=== PATIENT | female | born 1980 ===

== ENCOUNTER 2017-02-14 15:19 | Emergency (ER) | payer OTHER ==
[2017-02-14 15:19] VITALS: BMI 45.1
[2017-02-14 15:29] VITALS: BP 130/82; PULSE 90; RESP 18; TEMP 98.8; O2SAT 98
[2017-02-14] MEDS ORDERED: Sodium Chloride 0.9% 1,000 ML IV STA (16:07)
--- NOTE | 2017-02-14 16:07 | ED PDOC ---
HPI: Female Pain Time Seen by Provider: 02/14/17 16:04 Chief Complaint (Nursing): Female Genitourinary Chief Complaint (Provider): vaginal bleeding History Per: Patient (36 y/o female h/o HTN Approx 12 week gestation here with vaginal bleeding moderate today. Notes crampy abdominal pain. Has US pending for care under care of Dr. Sandoval medical dermatologist. Denies any dysuria/ fevers/chills.) Past Medical History Reviewed: Historical Data, Nursing Documentation, Vital Signs Vital Signs: Last Vital Signs Temp 98.8 F 02/14/17 15:25 Pulse 90 02/14/17 15:25 Resp 18 02/14/17 15:25 BP 130/82 02/14/17 15:25 Pulse Ox 98 02/14/17 15:25 - Medical History PMH: Anemia, Asthma, Bronchitis, HTN - Surgical History Surgical History: Tonsillectomy - Family History Family History: States: Unknown Family Hx - Immunization History Hx Tetanus Toxoid Vaccination: Yes Hx Influenza Vaccination: Yes Hx Pneumococcal Vaccination: Yes - Home Medications Home Medications: Ambulatory Orders Medication Instructions Recorded Blood Pressure Medicine 02/13/17 - Allergies Allergies/Adverse Reactions: Allergies Allergy/AdvReac Type Severity Reaction Status Date / Time Penicillins Allergy RASH Verified 02/13/17 08:55 shellfish derived Allergy RASH Verified 02/13/17 08:55 Review of Systems ROS Statement: Except As Marked, All Systems Reviewed And Found Negative Gastrointestinal: Positive for: Abdominal Pain Genitourinary Female: Positive for: Vaginal Bleeding Physical Exam - Reviewed Nursing Documentation Reviewed: Yes Vital Signs Reviewed: Yes - Physical Exam Appears: Positive for: Well, Non-toxic, No Acute Distress Head Exam: Positive for: ATRAUMATIC, NORMAL INSPECTION, NORMOCEPHALIC Skin: Positive for: Normal Color, Warm, DRY Eye Exam: Positive for: EOMI, Normal appearance, PERRL ENT: Positive for: Normal ENT Inspection Neck: Positive for: Normal, Painless ROM Cardiovascular/Chest: Positive for: Regular Rate, Rhythm Respiratory: Positive for: CNT, Normal Breath Sounds Gastrointestinal/Abdominal: Positive for: Normal Exam, Bowel Sounds, Soft Back: Positive for: Normal Inspection Extremity: Positive for: Normal ROM Neurologic/Psych: Positive for: Alert, Oriented - Laboratory Results Result Diagrams: 02/14/17 16:44 02/14/17 16:44 - ECG O2 Sat by Pulse Oximetry: 98 - Progress ED Course And Treament: us pelvic: IMPRESSION: Stable single intrauterine gestation identified with average ultrasound ultrasound age of 11 weeks 5 days with positive cardiac activity as noted above. No prominent hemorrhage is seen related to the decidual reaction this time once again. Continued clinical and possible sonographic follow-up are advised. Disposition - Clinical Impression Clinical Impression: Threatened miscarriage - Patient ED Disposition Is Patient to be Admitted: No - Disposition Disposition: Routine/Home Disposition Time: 18:30 Condition: FAIR Instructions: Threatened Miscarriage (ED) Forms: [employer] (Estonian)
[2017-02-14 16:49] LABS: BASO % 0.6 % (0.0-2.0); EOS # 0.1 K/uL (0.0-0.7); EOS % 2.1 % (0.0-4.0); HEMATOCRIT 34.9 % (34.0-47.0); LYMPH # 1.4 K/uL (1.0-4.3); LYMPH % 21.5 % (20.0-40.0); MEAN CELL VOLUME 86.6 fl (81.0-99.0); MEAN CORPUSCULAR HEMOGLOBIN 28.3 pg (27.0-31.0); MEAN CORPUSCULAR HGB CONC 32.7 g/dL (33.0-37.0); MEAN PLATELET VOLUME 8.3 fl (7.2-11.7); MONO # 0.5 K/uL (0.0-0.8); MONO % 7.8 % (0.0-10.0); NEUT # 4.4 K/uL (1.8-7.0); WHITE BLOOD COUNT 6.4 K/uL (4.8-10.8)
[2017-02-14 17:03] LABS: BLOOD UREA NITROGEN 8 mg/dl (7-17); CALCIUM 9.1 mg/dL (8.4-10.2); CARBON DIOXIDE 23 mmol/L (22-30); CHLORIDE 103 mmol/L (98-107); GFR AFRICAN-AMERICAN > 60; GLUCOSE,RANDOM 98 mg/dL (65-105); SODIUM 140 mmol/l (132-148)
--- NOTE | 2017-02-14 17:35 | US ---
PROCEDURE: OB Pelvic Ultrasound HISTORY: vaginal bleeding COMPARISON: None available. FINDINGS: UTERUS: Gestational sac: A single viable intrauterine gestation is again identified within an endometrial cavity the average ultrasonic age of 11 weeks 5 days which agrees with prior ultrasound examination performed 02/13/2017. No gross hemorrhage is seen related to the decidual reaction which is stable appearing. No definite myometrial lesion. Heart rate: 174 bpm. Uterus measures 15.4 x 8.5 x 9.5 cm cm. Normal in size and appearance. CERVIX: Long and closed. No cervical abnormality seen. RIGHT OVARY: Measures 2.5 x 1.9 x 1.7 cm. No mass lesion. Color Doppler blood flow could not be determined due to body habitus. LEFT OVARY: Measures 3.2 x 2.7 x 2.2 cm. No solid mass. Color Doppler blood flow could not be determined due to body habitus. FREE FLUID: None. OTHER FINDINGS: None. IMPRESSION: Stable single intrauterine gestation identified with average ultrasound ultrasound age of 11 weeks 5 days with positive cardiac activity as noted above. No prominent hemorrhage is seen related to the decidual reaction this time once again. Continued clinical and possible sonographic follow-up are advised.
== END 2017-02-14 18:50 | disposition home or self-care (01) ==
LOC: H.ER 15:19
DX: O20.0 Threatened abortion (principal); Z3A.12 12 weeks gestation of pregnancy
CPT/HCPCS: 76815; 80048; 81025; 84702; 85025; 86850; 86900; 87086; 99283; J7040

== ENCOUNTER 2017-02-18 03:34 | Observation (INO) | payer MEDICAID, OTHER ==
[2017-02-18 03:34] VITALS: BMI 45.1
[2017-02-18 03:43] VITALS: RESP 16
[2017-02-18] MEDS ORDERED: Sodium Chloride 0.9% 1,000 ML IV STA ×2 (04:01→05:53)
[2017-02-18 04:18] LABS: BASO % 0.3 % (0.0-2.0); EOS # 0.1 K/uL (0.0-0.7); HEMATOCRIT 32.7 % (34.0-47.0); LYMPH # 1.9 K/uL (1.0-4.3); LYMPH % 26.1 % (20.0-40.0); MEAN CELL VOLUME 85.6 fl (81.0-99.0); MEAN CORPUSCULAR HEMOGLOBIN 29.2 pg (27.0-31.0); MEAN CORPUSCULAR HGB CONC 34.1 g/dL (33.0-37.0); MEAN PLATELET VOLUME 8.4 fl (7.2-11.7); MONO # 0.7 K/uL (0.0-0.8); MONO % 9.7 % (0.0-10.0); NEUT # 4.6 K/uL (1.8-7.0); NEUT % 61.9 % (50.0-75.0); NRBC % 0.1 % (0.0-0.0); RED CELL DISTRIBUTION WIDTH 16.3 % (11.5-14.5); WHITE BLOOD COUNT 7.4 K/uL (4.8-10.8)
[2017-02-18 04:27] LABS: ALB/GLOB RATIO 1.2 (1.0-2.1); ALKALINE PHOSPHATASE 67 U/L (38-126); ALT/SGPT 32 U/L (9-52); AST/SGOT 18 U/L (14-36); BILIRUBIN,TOTAL 0.5 mg/dl (0.2-1.3); BLOOD UREA NITROGEN 8 mg/dl (7-17); CALCIUM 9.1 mg/dL (8.4-10.2); CARBON DIOXIDE 22 mmol/L (22-30); CHLORIDE 106 mmol/L (98-107); GFR AFRICAN-AMERICAN > 60; GLUCOSE,RANDOM 119 mg/dL (65-105); POTASSIUM 3.7 MMOL/L (3.6-5.0); TOTAL PROTEIN 6.7 G/DL (6.3-8.2)
[2017-02-18 04:38] LABS: SODIUM 136 mmol/l (132-148)
--- NOTE | 2017-02-18 05:16 | ED PDOC ---
HPI: Female Pain Time Seen by Provider: 02/18/17 03:43 Chief Complaint (Nursing): Female Genitourinary Chief Complaint (Provider): vaginal bleeding History Per: Patient History/Exam Limitations: no limitations Onset/Duration Of Symptoms: Mins (30) Current Symptoms Are (Timing): Still Present Quality Of Discomfort: Cramping, "Pain" Additional History Per: Patient Additional Complaint(s): 36 y/o female approx 13 weeks gestation presents with heavy vaginal bleeding with low back pain x 30 mins. Patient actively vomiting upon arrival to ED. Denies fever, chest pain, shortness of breath, abdominal pain, dysuria, hematuria. Abnormal Vaginal Bleeding: Yes : 2 Para: 1 Miscarriage: 0 Past Medical History Reviewed: Historical Data, Nursing Documentation, Vital Signs Vital Signs: Last Vital Signs Temp 99.6 F 02/18/17 03:39 Pulse 74 02/18/17 03:39 Resp 16 02/18/17 03:39 BP 123/61 02/18/17 03:39 Pulse Ox 100 02/18/17 03:39 - Medical History PMH: Anemia, Asthma, Bronchitis, HTN - Surgical History Surgical History: Tonsillectomy - Family History Family History: States: Unknown Family Hx - Immunization History Hx Tetanus Toxoid Vaccination: Yes Hx Influenza Vaccination: Yes Hx Pneumococcal Vaccination: Yes - Home Medications Home Medications: Ambulatory Orders Medication Instructions Recorded Blood Pressure Medicine 02/13/17 - Allergies Allergies/Adverse Reactions: Allergies Allergy/AdvReac Type Severity Reaction Status Date / Time Penicillins Allergy RASH Verified 02/18/17 03:39 shellfish derived Allergy RASH Verified 02/18/17 03:39 Review of Systems ROS Statement: Except As Marked, All Systems Reviewed And Found Negative Genitourinary Female: Positive for: Vaginal Bleeding Musculoskeletal: Positive for: Back Pain Physical Exam - Reviewed Nursing Documentation Reviewed: Yes Vital Signs Reviewed: Yes - Physical Exam Appears: Positive for: Well, Non-toxic, In Acute Distress Head Exam: Positive for: ATRAUMATIC, NORMAL INSPECTION, NORMOCEPHALIC Skin: Positive for: Diaphoresis, Pallor Eye Exam: Positive for: Normal appearance ENT: Positive for: Normal ENT Inspection Cardiovascular/Chest: Positive for: Regular Rate, Rhythm Respiratory: Positive for: Normal Breath Sounds Gastrointestinal/Abdominal: Positive for: Normal Exam Back: Positive for: Normal Inspection Extremity: Positive for: Normal ROM Neurologic/Psych: Positive for: Alert, Oriented - Laboratory Results Result Diagrams: 02/18/17 04:14 02/18/17 04:14 - ECG O2 Sat by Pulse Oximetry: 100 - Progress ED Course And Treament: labs, urine, IV fluids, PO tylenol, OB u/s On re-eval, patient states she passed fetus. Fetus noted on exam room floor; obtained and sent to pathology. Patient states pain improved, still with bleeding. ED OBSERVATION Date of observation admission: 02/18/17 Time of observation admission: 05:15 - Observation admission statement Patient is placed on observation because of need: for continuous hemodynamic monitoring - Progress Note Progress Note: 02/18/17 5:20 Patient refused transvaginal ultrasound, and unable to sit still for transabdominal. Patient sent back from u/s and is now vomiting. IV zofran, IV morphine ordered Disposition - Clinical Impression Clinical Impression: Complete - Disposition Disposition: Transfer of Care Disposition Time: 06:00 Condition: FAIR Patient Signed Over To: Joey Anders Handoff Comments: pending repeat CBC, am u/s
[2017-02-18] MEDS ORDERED: Oxycodone/Acetaminophen 5/325 mg Tab PO ONE (05:30)
[2017-02-18] MEDS ORDERED: Oxycodone/Acetaminophen 5/325 mg Tab ONE (05:32)
--- NOTE | 2017-02-18 06:12 | ED PDOC ---
- Laboratory Results Result Diagrams: 02/18/17 04:14 02/18/17 04:14 - ECG O2 Sat by Pulse Oximetry: 100 Medical Decision Making Medical Decision Making: At 6AM pt signed out to provider by Nancy MELENDEZ; pending repeat labs, U/S, and re-evaluation At 7AM pt s/o to Dr Banuelos pending repeat labs, U/S and re-evaluation. Disposition - Clinical Impression Clinical Impression: Complete - POA Present On Arrival: None - Disposition Disposition: Transfer of Care Disposition Time: 16:00 Condition: FAIR Patient Signed Over To: Susie Banuelos
[2017-02-18 08:48] LABS: HEMATOCRIT 30.1 % (34.0-47.0); MEAN CELL VOLUME 86.8 fl (81.0-99.0); MEAN CORPUSCULAR HEMOGLOBIN 28.5 pg (27.0-31.0); MEAN CORPUSCULAR HGB CONC 32.8 g/dL (33.0-37.0); RED CELL DISTRIBUTION WIDTH 16.2 % (11.5-14.5)
[2017-02-18 10:29] LABS: PH,URINE 7.5 (5.0-8.0); URINE BILIRUBIN LARGE (NEGATIVE); URINE BLOOD LARGE (NEGATIVE); URINE COLOR DARK RED (YELLOW); URINE GLUCOSE (UA) NEGATIVE (Normal); URINE KETONE 15 mg/dL (NEGATIVE); URINE PROTEIN >=300 mg/dL (NEGATIVE)
[2017-02-18 10:30] LABS: RBC URINE 600 /hpf (0-3); URINE BACTERIA FEW (<OCC); URINE LEUKOCYTE ESTERASE LARGE Leu/uL (Negative); WBC URINE 5 /hpf (0-5)
--- NOTE | 2017-02-18 11:18 | US ---
HISTORY: 13 wks : bleeding COMPARISON: None available. TECHNIQUE: Transabdominal pelvic ultrasound was performed. The patient refused endovaginal examination. FINDINGS: UTERUS: Measures 20.7 x 10.0 x 9.5 cm. The uterus is enlarged and anteverted. No evidence of intrauterine gestation. ENDOMETRIUM: The central endometrial echo complex is thickened and heterogeneous measuring 19 mm. CERVIX: There is large amount of complex echogenic material in the lower you try knee canal and endocervical canal. RIGHT OVARY: Not visualized. LEFT OVARY: Not visualized. FREE FLUID: No significant free fluid noted. OTHER FINDINGS: None. IMPRESSION: No evidence of intrauterine gestation or retained products of conception. Findings are most compatible with blood clots in the lower uterine segment and endocervical canal.
[2017-02-18 11:23] VITALS: PULSE 68
--- NOTE | 2017-02-18 12:13 | ED PDOC ---
- Laboratory Results Result Diagrams: 02/18/17 08:42 02/18/17 04:14 - ECG O2 Sat by Pulse Oximetry: 99 Medical Decision Making Medical Decision Making: Ultrasound reviewed. Patient denies complaints except for bleeding. She does not have lightheadedness or weakness. 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 Case d/w Dr. Schwab. May discharge home with close followup with her OB Disposition Doctor Will See Patient In The: Office Counseled Patient/Family Regarding: Diagnosis, Need For Followup, Rx Given - Clinical Impression Clinical Impression: Complete - POA Present On Arrival: None - Disposition Disposition: Routine/Home Disposition Time: 12:54 Condition: FAIR
[2017-02-18 13:40] VITALS: BP 128/70; TEMP 98.2; O2SAT 100
== END 2017-02-18 13:39 | disposition home or self-care (01) ==
LOC: H.ER 03:34 → H.EROBSV 05:40
PROVIDERS: ADMIT Emergency Medicine; ATTEND Emergency Medicine
DX: O03.9 Complete or unspecified spontaneous abortion without complication (principal); J45.909 Unspecified asthma, uncomplicated; D64.9 Anemia, unspecified; J40 Bronchitis, not specified as acute or chronic; O16.1 Unspecified maternal hypertension, first trimester; O99.511 Diseases of the respiratory system complicating pregnancy, first trimester; O21.9 Vomiting of pregnancy, unspecified; Z3A.13 13 weeks gestation of pregnancy; M54.5 Low back pain
CPT/HCPCS: 76815; 80053; 81003; 84702; 85025; 85027; 87086; 88305; 96365; 96375; 96376; 99285; G0378; J2270; J2405; J2765; J7040

== ENCOUNTER 2017-08-07 00:08 | Emergency (ER) | payer MEDICAID, OTHER ==
[2017-08-07 00:09] VITALS: BMI 45.1
[2017-08-07 00:32] VITALS: RESP 17; TEMP 97.8; O2SAT 97
--- NOTE | 2017-08-07 03:46 | ED PDOC ---
HPI: Hypertension/Hypotension Time Seen by Provider: 08/07/17 01:51 Chief Complaint (Nursing): Palpitations Chief Complaint (Provider): Palpitations History Per: Patient History/Exam Limitations: no limitations Onset/Duration Of Symptoms: Intermittent Episodes Current Symptoms Are (Timing): Intermittent Episodes (since earlier today) Associated Symptoms: denies: Chest Pain, Dyspnea, Dizziness, Blurred Vision, Focal Weakness, Headache Additional Complaint(s): 37 year old female presents to ED with complaints of intermittent palpitations and SOB since earlier today. Patient expresses concern over her HTN (patient has not taken her Losartan 50mg daily for the past month due to lack of insurance and losing her PMD) and is unsure if that is contributing to her current symptoms. Patient states she also has a history of PCOS and asthma. (-) fever, chest pain, cough, headache, dizziness, visual changes, or rash. 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 Patient denies any exertional activity or positional component. Patient denies any symptoms at present and states the last episode was 1-2 hours prior to arrival. PCP: None Past Medical History Reviewed: Historical Data, Nursing Documentation, Vital Signs Vital Signs: Last Vital Signs Temp 97.8 F 08/07/17 00:27 Pulse 90 08/07/17 00:27 Resp 17 08/07/17 00:27 BP 158/107 H 08/07/17 02:51 Pulse Ox 97 08/07/17 00:27 - Medical History PMH: Anemia, Asthma, Bronchitis, HTN - Surgical History Surgical History: Tonsillectomy - Family History Family History: States: Stroke, [place], CAD, Hypertension - Living Arrangements Living Arrangements: With Family - Social History Current smoker - smoking cessation education provided: No Ex-Smoker (has not smoked in the last 12 months): No Alcohol: None Drugs: Denies - Home Medications Home Medications: Ambulatory Orders Medication Instructions Recorded Blood Pressure Medicine 02/13/17 Methylergonovine [Methergine] 0.2 mg PO DAILY #3 tab 02/18/17 Azithromycin 250 mg PO DAILY #6 tab 06/09/17 Losartan [Cozaar] 50 mg PO DAILY #30 tab 06/09/17 Losartan [Cozaar] 50 mg PO DAILY #14 tab 08/07/17 - Allergies Allergies/Adverse Reactions: Allergies Allergy/AdvReac Type Severity Reaction Status Date / Time Penicillins Allergy RASH Verified 08/07/17 00:32 shellfish derived Allergy RASH Verified 08/07/17 00:32 Review of Systems ROS Statement: Except As Marked, All Systems Reviewed And Found Negative Constitutional: Negative for: Fever Cardiovascular: Positive for: Palpitations. Negative for: Chest Pain Respiratory: Positive for: Shortness of Breath. Negative for: Cough Skin: Negative for: Rash Neurological: Negative for: Headache, Dizziness Physical Exam - Reviewed Nursing Documentation Reviewed: Yes Vital Signs Reviewed: Yes - Physical Exam Appears: Positive for: Non-toxic, No Acute Distress Head Exam: Positive for: ATRAUMATIC, NORMOCEPHALIC Skin: Positive for: Normal Color, Warm, Dry Eye Exam: Positive for: PERRL. Negative for: Nystagmus Neck: Positive for: Painless ROM Cardiovascular/Chest: Positive for: Regular Rate, Rhythm. Negative for: Chest Non Tender, Murmur, Bradycardia, Tachycardia Respiratory: Positive for: Normal Breath Sounds (speaking in full sentences, respirations even and nonlabored.). Negative for: Decreased Breath Sounds, Accessory Muscle Use, Wheezing, Respiratory Distress Gastrointestinal/Abdominal: Positive for: Soft. Negative for: Tenderness, Mass , Distended, Guarding Back: Negative for: L CVA Tenderness, R CVA Tenderness Extremity: Positive for: Normal ROM. Negative for: Pedal Edema, Calf Tenderness , Deformity Neurologic/Psych: Positive for: Alert, ship runner II-XII (grossly intact), Oriented (x3 ), Gait (steady in ED). Negative for: Motor/Sensory Deficits, Aphasia, Facial Droop - ECG ECG Rhythm: Positive for: Normal ST Segment Interpretation Of ECG: NSR Rate: 80 O2 Sat by Pulse Oximetry: 97 (RA) Pulse Ox Interpretation: Normal Medical Decision Making Medical Decision Makin Initial impression: palpitations, elevated blood pressure Initial plan: * CXR * Cozaar 50mg PO * Re-eval * Repeat vitals 0240 CXR reviewed by Robby MARROQUIN, no acute disease. Patient notified a Radiologist will review the ED reading if any change in treatment is needed we will contact you. 0250 Repeat BP: 158/107 0355 Repeat BP: 152/104 On re-evaluation, patient reports improvement of symptoms, denies any palpitations or chest discomfort at this time. On exam, patient remains AAOx3, in no acute distress. Lungs clear to auscultation, cardiac RRR, abdomen soft, non-tender, repeat neuro exam shows no focal findings. Lab/Diagnostic results d/w the patient in great detail. Diagnosis of elevated BP , palpitations d/w the patient. Based on history, exam and diagnostic results, plan will be for outpatient follow up. Patient instructed to follow-up with pmd / referral provided / the clinic in 1- 2 days without fail. Advised to take medication as prescribed. Return to the emergency room at any time for any new or worsening symptoms. Patient states she fully agrees with and understands discharge instructions. States that she agrees with the plan and disposition. Verbalized and repeated discharge instructions and plan. I have given the patient opportunity to ask any additional questions. Scribe Attestation: Documented by Mare John acting as a scribe for Ryanne Bustamante PA-C. Scribe Attestation: All medical record entries made by the Scribe were at my direction and personally dictated by me. I have reviewed the chart and agree that the record accurately reflects my personal performance of the history, physical exam, medical decision making, and the department course for this patient. I have also personally directed, reviewed, and agree with the discharge instructions and disposition. Disposition - Clinical Impression Clinical Impression: Palpitations, Hypertension - Patient ED Disposition Is Patient to be Admitted: No Counseled Patient/Family Regarding: Studies Performed, Diagnosis, Need For Followup, Rx Given - Disposition Referrals: [facility] [Provider Group] Disposition: Routine/Home Disposition Time: 03:55 Condition: FAIR Prescriptions: Losartan [Cozaar] 50 mg PO DAILY #14 tab Instructions: High Blood Pressure in Adults, DASH Diet, Palpitations, Controlling Your Blood Pressure Through Lifestyle, Medicines for High Blood Pressure Forms: [employer] (French), [facility] ED School/Work Excuse Print Language: AZERI - POA Present On Arrival: None
[2017-08-07 03:50] VITALS: PULSE 80
[2017-08-07 03:55] VITALS: BP 152/104
--- NOTE | 2017-08-07 09:58 | RAD ---
HISTORY: SOB COMPARISON: No prior. TECHNIQUE: Chest PA and lateral FINDINGS: LUNGS: No active pulmonary disease. PLEURA: No significant pleural effusion identified. No pneumothorax apparent. CARDIOVASCULAR: Normal. OSSEOUS STRUCTURES: Mild multilevel degenerative spondylosis of the thoracic spine. Chronic anterior wedge deformities of a few mid to lower thoracic segments noted. VISUALIZED UPPER ABDOMEN: Normal. OTHER FINDINGS: None. IMPRESSION: No active disease.
== END 2017-08-07 04:20 | disposition home or self-care (01) ==
LOC: H.ER 00:08
DX: R00.2 Palpitations (principal); I10 Essential (primary) hypertension; J45.909 Unspecified asthma, uncomplicated; Z88.0 Allergy status to penicillin

== ENCOUNTER 2018-05-23 03:45 | Emergency (ER) | payer MEDICAID, OTHER ==
[2018-05-23 03:46] VITALS: BMI 45.1
[2018-05-23 04:30] LABS: SQUAMOUS EPITHIAL 4 /hpf (0-5); URINE BACTERIA RARE (<OCC); URINE BILIRUBIN NEGATIVE (NEGATIVE); URINE BLOOD LARGE (NEGATIVE); URINE CLARITY CLOUDY (Clear); URINE COLOR YELLOW (YELLOW); URINE GLUCOSE (UA) NEG (NEGATIVE); URINE LEUKOCYTE ESTERASE NEG Leu/uL (Negative); URINE PROTEIN 30 mg/dL (NEGATIVE); URINE UROBILINOGEN 0.2-1.0 mg/dL (0.2-1.0)
[2018-05-23 04:40] LABS: BASO % 0.7 % (0.0-2.0); EOS # 0.2 K/uL (0.0-0.7); EOS % 3.4 % (0.0-4.0); HEMOGLOBIN 11.4 g/dL (12.0-16.0); LYMPH % 27.8 % (20.0-40.0); MEAN CELL VOLUME 85.1 fl (81.0-99.0); MEAN CORPUSCULAR HEMOGLOBIN 28.2 pg (27.0-31.0); MEAN CORPUSCULAR HGB CONC 33.1 g/dL (33.0-37.0); MEAN PLATELET VOLUME 8.7 fl (7.2-11.7); MONO # 0.5 K/uL (0.0-0.8); MONO % 7.4 % (0.0-10.0); NEUT # 4.3 K/uL (1.8-7.0); NEUT % 60.7 % (50.0-75.0); NRBC % 0.2 % (0.0-0.0); RBC 4.06 Mil/uL (3.80-5.20); RED CELL DISTRIBUTION WIDTH 14.7 % (11.5-14.5); WHITE BLOOD COUNT 7.1 K/uL (4.8-10.8)
[2018-05-23 05:04] LABS: ALB/GLOB RATIO 1.3 (1.0-2.1); ALBUMIN 4.1 g/dL (3.5-5.0); ALT/SGPT 45 U/L (9-52); AST/SGOT 45 U/L (14-36); BLOOD UREA NITROGEN 8 mg/dl (7-17); GFR NON-AFRICAN AMERICAN > 60
--- NOTE | 2018-05-23 05:13 | ED PDOC ---
HPI: Female Pain Time Seen by Provider: 05/23/18 04:00 Chief Complaint (Nursing): Female Genitourinary Chief Complaint (Provider): Vaginal Bleeding History Per: Patient History/Exam Limitations: no limitations Onset/Duration Of Symptoms: Days (2 weeks) Current Symptoms Are (Timing): Still Present Additional Complaint(s): 38 year old female with PMHX of PCOS and anemia presents to the ED for an evaluation of continuous menses for 2 weeks associated with dizziness and light headedness. Patient reports she did not have her period for 4 months and currently she has vaginal bleeding with clots. She states she was seen in the ED for miscarriage in 2017. Patient did not follow-up with operater due to insurance issues. Denies dysuria, frequency, abdominal pain, fever or back pain. PMD: No family provider Abnormal Vaginal Bleeding: Yes Past Medical History Reviewed: Historical Data, Nursing Documentation, Vital Signs Vital Signs: Last Vital Signs Temp 97.9 F 05/23/18 03:56 Pulse 106 H 05/23/18 03:56 Resp 18 05/23/18 03:56 BP 210/107 H 05/23/18 03:56 Pulse Ox 98 05/23/18 03:56 - Medical History PMH: Anemia, Asthma, Bronchitis, HTN - Surgical History Surgical History: Tonsillectomy - Family History Family History: States: Unknown Family Hx, Stroke, [place], CAD, Hypertension - Social History Current smoker - smoking cessation education provided: No Alcohol: None Drugs: Denies - Immunization History Hx Tetanus Toxoid Vaccination: Yes Hx Influenza Vaccination: Yes Hx Pneumococcal Vaccination: Yes - Home Medications Home Medications: Ambulatory Orders Medication Instructions Recorded Ciprofloxacin/Dexamethasone 4 drop OT BID #1 bottle 01/17/18 [Ciprodex 0.3%-0.1% 7.5 Ml] Losartan/Hydrochlorothiazide 1 each PO DAILY 01/17/18 [Losartan-Hctz 100-25 mg Tab] RX: Clindamycin [Cleocin] 300 mg PO Q6 #40 cap 01/17/18 - Allergies Allergies/Adverse Reactions: Allergies Allergy/AdvReac Type Severity Reaction Status Date / Time Penicillins Allergy RASH Verified 05/23/18 03:56 shellfish derived Allergy RASH Verified 05/23/18 03:56 Review of Systems ROS Statement: Except As Marked, All Systems Reviewed And Found Negative Constitutional: Negative for: Fever Respiratory: Negative for: Shortness of Breath Genitourinary Female: Positive for: Vaginal Bleeding. Negative for: Dysuria, Frequency, Incontinence Neurological: Positive for: Dizziness, Other ( light headedness) Physical Exam - Reviewed Nursing Documentation Reviewed: Yes Vital Signs Reviewed: Yes - Physical Exam Appears: Positive for: Well (obese), Non-toxic, No Acute Distress Head Exam: Positive for: ATRAUMATIC, NORMAL INSPECTION, NORMOCEPHALIC Skin: Positive for: Normal Color, Warm, Dry. Negative for: Rash Eye Exam: Positive for: EOMI, Normal appearance, PERRL ENT: Positive for: Normal ENT Inspection Neck: Positive for: Normal, Painless ROM, Supple. Negative for: Decreased ROM Cardiovascular/Chest: Positive for: Regular Rate, Rhythm. Negative for: Murmur Respiratory: Positive for: Normal Breath Sounds. Negative for: Decreased Breath Sounds, Wheezing, Respiratory Distress Gastrointestinal/Abdominal: Positive for: Normal Exam, Soft. Negative for: Tend erness Back: Positive for: Normal Inspection. Negative for: L CVA Tenderness, R CVA Tenderness Extremity: Positive for: Normal ROM. Negative for: Tenderness, Pedal Edema, Deformity Neurologic/Psych: Positive for: Alert, Oriented (x3), Gait (steady). Negative for: Motor/Sensory Deficits - Laboratory Results Result Diagrams: 05/23/18 04:28 05/23/18 04:28 - ECG O2 Sat by Pulse Oximetry: 98 (RA) Pulse Ox Interpretation: Normal Medical Decision Making Medical Decision Making: Time: 0406 Initial Impression: vaginal bleeding Initial Plan: Beta-HCG, Quantitative CMP CBC w/ Differential Urine C&S Urinalysis Transvaginal [US] Reevaluation Time: 07 Patient will be endorsed to Dr. Huston pending US and reevaluation. Scribe Attestation: Documented by Anna Hester, acting as a scribluly Bond MD Provider Scribe Attestation: All medical record entries made by the Scribe were at my direction and personally dictated by me. I have reviewed the chart and agree that the record accurately reflects my personal performance of the history, physical exam, medical decision making, and the department course for this patient. I have also personally directed, reviewed, and agree with the discharge instructions and disposition. Disposition - Clinical Impression Clinical Impression: PCOS (polycystic ovarian syndrome) - Patient ED Disposition Is Patient to be Admitted: Transfer of Care - [facility]position [facility] Disposition: Transfer of Care Disposition Time: 07:00 Condition: FAIR Instructions: Polycystic Ovary Syndrome Forms: [employer] (Danish) Patient Signed Over To: Jesus Huston Handoff Comments: pending US and reevaluation
--- NOTE | 2018-05-23 07:11 | ED PDOC ---
- Laboratory Results Result Diagrams: 05/23/18 04:28 05/23/18 04:28 - ECG O2 Sat by Pulse Oximetry: 98 (RA) Pulse Ox Interpretation: Normal Medical Decision Making Medical Decision Making: Time: 0700 -- Patient endorsed to me by Dr. Bond, pending US, re-evaluation and final ER disposition. Scribe Attestation: Documented by Niurka Frazier, acting as a scribe for Jesus Huston MD. Provider Scribe Attestation: All medical record entries made by the Scribe were at my direction and personally dictated by me. I have reviewed the chart and agree that the record accurately reflects my personal performance of the history, physical exam, medical decision making, and the department course for this patient. I have also personally directed, reviewed, and agree with the discharge instructions and disposition. Disposition - Clinical Impression Clinical Impression: PCOS (polycystic ovarian syndrome) - POA Present On Arrival: None - Disposition [facility]errals[facility] [[facility]] Disposition: Routine/Home Disposition Time: 11:34 Condition: FAIR Instructions: Polycystic Ovary Syndrome Forms: [employer] (Romansh)
--- NOTE | 2018-05-23 11:23 | US ---
Date of service: 05/23/2018 PROCEDURE: HISTORY: vag bleeding irreg COMPARISON: TECHNIQUE: FINDINGS: The uterus measures 11.5 x 6.7 x 5.1 centimeters. The endometrium measures 11 millimeters. The ovaries are not identified. IMPRESSION: No evidence of intrauterine . Thickened endometrium. Correlate with menstrual status/cycle.
[2018-05-23 11:50] VITALS: BP 182/89; PULSE 84; RESP 20; TEMP 98
[2018-05-24 01:53] VITALS: O2SAT 98
== END 2018-05-23 11:50 | disposition home or self-care (01) ==
LOC: H.ER 03:45
DX: E28.2 Polycystic ovarian syndrome (principal); D64.9 Anemia, unspecified; I10 Essential (primary) hypertension; Z88.0 Allergy status to penicillin